=== PATIENT | female | born 1960 | race Caucasian/White ===

== ENCOUNTER → 2017-04-19 | Outpatient (CLI) | payer BC ==
--- NOTE | 2017-04-20 14:41 | MAMMOGRAPHY REPORT ---
BILATERAL DIGITAL SCREENING MAMMOGRAM TOMOSYNTHESIS WITH CAD: 04/19/2017 CLINICAL HISTORY: Routine screening. Patient has no complaints. TECHNIQUE: Breast tomosynthesis in addition to standard 2D mammography was performed. Current study was also evaluated with a Computer Aided Detection (CAD) system. COMPARISON: Comparison is made to exams dated: 04/13/2016 mammogram, 04/01/2015 mammogram, 03/19/2014 ma mmogram, 01/02/2013 mammogram, 12/02/2011 mammogram, and 12/01/2010 mammogram - [facility] nter. BREAST COMPOSITION: There are scattered areas of fibroglandular density in both breasts. FINDINGS: There are benign-appearing calcifications in the lateral right breast. No suspicious mass, architectural distortion or cluster of suspicious microcalcifications is seen. IMPRESSION: ACR BI-RADS CATEGORY 1: NEGATIVE There is no mammographic evidence of malignancy. A 1 year screening mammogram is recommended. The pa tient will receive written notification of the results. Approximately 10% of breast cancers are not detected with mammography. A negative mammographic report should not delay biopsy if a clinically suggestive mass is present. Elizabeth Pederson M.D. ay/:04/19/2017 17:13:43 Metal Cut Off Saw Operator: Sharona GONSALEZ(Catracho)(Maria Del Rosario), [facility] letter sent: Normal 1/2 BI-RADS Code: ACR BI-RADS Category 1: Negative
== END | disposition home or self-care (01) ==
LOC: C.MAMM 16:52
PROVIDERS: ATTEND Obstetrics & Gynecology
DX: Z12.31 Encounter for screening mammogram for malignant neoplasm of breast (principal)

== ENCOUNTER 2017-10-16 15:44 | Emergency (ER) | payer BC ==
[~2017-10-16] VITALS: Ht 162.6 cm; Wt 93.4 kg
[2017-10-16 16:03] VITALS: Ht 162.6 cm; Wt 93.4 kg
--- NOTE | 2017-10-16 16:15 | EMERGENCY ROOM VISIT NOTE ---
History Report prepared by Jose: Josue Barreto Under the Supervision of: Dr. Tyler Nelson M.D. First contact with patient: 15:52 Chief Complaint: FLU LIKE SX Stated Complaint: FLU LIKE SX, NAUSEA, VOMITING, LETARGIC History of Present Illness The patient is a 57 year old female who presents to the Emergency Room with complaints of nausea that began very early this morning. The patient and her family ate the same dinner recently and all experienced episodes of vomiting and diarrhea. The patient woke up very early this morning experiencing her nausea with emesis and diarrhea episodes. These continued all morning until a couple of hours ago when she called the ambulance. She then began to be very difficult to talk to as she does not easily respond. She denies any abdominal pain. She notes that while she was vomiting, she believes to have lost consciousness and does not know if she hit her head. Source of History: patient, family Onset: early this morning Position: other (GI) Symptom Intensity: moderate Quality: other (Nausea) Timing: constant Associated Symptoms: + vomiting, + diarrhea, No abdominal pain Review of Systems See HPI for pertinent positives and negatives. A total of ten systems were reviewed and were otherwise negative. Past Medical & Surgical Medical Problems: (1) No Known Active Medical Problems Gastric Sleeve placed in 2014 Family History Patient reports no known family medical history. Social History Smoking Status: Former Smoker Smokeless Tobacco Use: No Drug Use: none Marital Status: Housing Status: lives with family Current/Historical Medications Scheduled Cholecalciferol (Vitamin D3), 1,000 UNITS PO DAILY Cyanocobalamin (Vitamin B-12), Unknown Dose PO DAILY Famotidine (Pepcid), 20 MG PO BID Multiple Vitamin (Multivitamin), 1 TAB PO DAILY Ondasetron Odt (Zofran Odt), 4 MG SL Q6H Triamterene/Hctz (Maxzide 75MG/50MG), 1 TAB PO QAM Triamterene/Hctz (Maxzide 75MG/50MG), 0.5 TAB PO QPM Allergies Coded Allergies: Penicillins (Verified Allergy, Unknown, 12/11/09) Physical Exam Vital Signs Date Time Temp Pulse Resp B/P (MAP) Pulse Ox O2 Delivery O2 Flow Rate FiO2 10/16/17 21:13 80 20 132/72 98 10/16/17 20:30 80 10/16/17 19:41 83 20 121/59 98 Room Air 10/16/17 17:09 36.7 82 20 120/79 99 Room Air 10/16/17 16:14 82 10/16/17 16:03 36.5 82 20 146/80 100 Room Air Physical Exam GENERAL: Eyes are closed but responds to painful stimuli, well-appearing, in mild distress HENT: Normocephalic, atraumatic. Oropharynx reveals dry cracked mucous membranes. EYES: Normal conjunctiva. Sclera non-icteric. NECK: Supple. No nuchal rigidity. FROM. No JVD. RESPIRATORY: Clear to auscultation. CARDIAC: Regular rate, normal rhythm. Extremities warm and well perfused. Pulses equal. ABDOMEN: Soft, non-distended. No tenderness to palpation. No rebound or guarding. No masses. RECTAL: Deferred. MUSCULOSKELETAL: Chest examination reveals no tenderness. The back is symmetrical on inspection without obvious abnormality. There is no CVA tenderness to palpation. No joint edema. LOWER EXTREMITIES: Calves are equal size bilaterally and non-tender. No edema. No discoloration. NEURO: Normal sensorium. No sensory or motor deficits noted. SKIN: Warm and dry. No rash or jaundice noted. Medical Decision & Procedures ER Provider Diagnostic Interpretation: Radiology results as stated below per my review and radiologist interpretation: SINGLE VIEW CHEST CLINICAL HISTORY: Fever. Sepsis. FINDINGS: An AP, portable, upright chest radiograph is compared to study dated 11/20/2012. Correlation is made with chest CT dated 01/30/2009. The heart is top normal for projection. The pulmonary vasculature is noncongested. There are low lung volumes with mild bibasilar atelectasis. No airspace consolidation, large pleural effusion, or pneumothorax is seen. The bony thorax is grossly intact. IMPRESSION: Low lung volumes with no acute cardiopulmonary abnormality. Electronically signed by: Travon Montes M.D. 10/16/2017 4:21 PM Dictated Date/Time: 10/16/2017 4:[address] SCAN OF THE BRAIN WITHOUT IV CONTRAST CLINICAL HISTORY: Change in mental status. COMPARISON STUDY: CT of the brain dated 01/30/2009. TECHNIQUE: Unenhanced axial CT scan of the brain is performed from the vertex to the skull base. CT DOSE: 1957.41 mGy.cm FINDINGS: Brain parenchyma: There are age-related involutional changes noting mild subcortical and periventricular microangiopathic change. There is no hemorrhage, mass effect, or evidence of acute territorial ischemia by CT criteria. Guerra-white matter is preserved. No extra-axial fluid collection is seen. Ventricles, sulci, cisterns: Prominent secondary to involutional change. Intracranial vasculature: Partially visualized intracranial vessels at the skull base are grossly normal in appearance. Calvarium: Unremarkable. Sinuses and mastoids: Trace mucosal thickening is seen in the right maxillary antrum and ethmoid sinuses. The remaining visualized paranasal sinuses are clear. The mastoid air cells are well pneumatized. Orbits: The bony orbits are grossly intact. IMPRESSION: There is no hemorrhage, mass effect, or evidence of acute territorial ischemia by CT criteria. Electronically signed by: Travon Montes M.D. 10/16/2017 5:45 PM Dictated Date/Time: 10/16/2017 5:[address] SCAN OF THE ABDOMEN AND PELVIS WITH IV CONTRAST CLINICAL HISTORY: Generalized abdominal pain. Nausea and vomiting. Diarrhea. COMPARISON STUDY: Abdominal CT dated 01/30/2009. TECHNIQUE: Following the IV administration of 93 cc of Optiray 320, CT scan of the abdomen and pelvis is performed from the lung bases to the proximal femora. Images are reviewed in the axial, sagittal, and coronal planes. IV contrast was administered without complication. A dose lowering technique was utilized adhering to the principles of ALARA. FINDINGS: Lung bases: The heart is normal in size and without pericardial effusion. The lung bases are clear noting dependent atelectasis. Liver: The contrast-enhanced liver is enlarged, measuring 21.6 cm in length. The liver is normal in contour and attenuation. There is minimal central intrahepatic biliary ductal dilatation. The hepatic veins and portal veins are patent. Gallbladder: Surgically absent noting clips in the gallbladder fossa. Spleen: The spleen is mildly enlarged, measuring 13.2 cm in length. Pancreas: Unremarkable. Adrenal glands: Unremarkable. Kidneys: The contrast enhanced kidneys demonstrate mild cortical atrophy and are without hydronephrosis. The kidneys enhance symmetrically. Abdominal vasculature: The abdominal aorta is normal in course and caliber noting mild atherosclerotic calcification. Stomach and bowel: There is a small hiatal hernia. Postoperative change is noted in the stomach. The duodenum is normal in configuration. No bowel obstruction is seen. There is mild colonic diverticulosis without CT evidence of acute diverticulitis. The appendix is well-visualized and normal. Peritoneum: There is no intraperitoneal free air or abdominal ascites. There is a complex fat-containing ventral hernia in the pelvic midline. Lymphadenopathy: None. Pelvic viscera: The bladder is normal as visualized. The uterus is atrophic versus surgically absent. No adnexal lesion is seen. Skeletal structures: The skeletal structures are osteopenic. No lytic or blastic lesions are seen. IMPRESSION: 1. There are no acute infectious or inflammatory findings in the abdomen or pelvis. 2. Mild hepatosplenomegaly. 3. Mild colonic diverticulosis without CT evidence of acute diverticulitis. 4. Additional findings as above. Electronically signed by: Travon Montes M.D. 10/16/2017 5:51 PM Dictated Date/Time: 10/16/2017 5:45 PM Laboratory Results 10/16/17 16:31 Red Blood Count 5.29, Mean Corpuscular Volume 87.9, Mean Corpuscular Hemoglobin 30.4, Mean Corpuscular Hemoglobin Concent 34.6, Mean Platelet Volume 10.3, Neutrophils (%) (Auto) 94.0, Lymphocytes (%) (Auto) 2.6, Monocytes (%) (Auto) 3.0, Eosinophils (%) (Auto) 0.1, Basophils (%) (Auto) 0.1, Neutrophils # (Auto) 9.40, Lymphocytes # (Auto) 0.26, Monocytes # (Auto) 0.30, Eosinophils # (Auto) 0.01, Basophils # (Auto) 0.01 10/16/17 16:31 Test 10/16/17 16:25 10/16/17 16:31 10/16/17 17:05 10/16/17 20:30 Influenza Type A Antigen Neg for Influ A (NEG) Influenza Type B Antigen Neg for Influ B (NEG) White Blood Count 10.00 K/uL (4.8-10.8) Red Blood Count 5.29 M/uL (4.2-5.4) Hemoglobin 16.1 g/dL (12.0-16.0) Hematocrit 46.5 % (37-47) Mean Corpuscular Volume 87.9 fL (80-100) Mean Corpuscular Hemoglobin 30.4 pg (25-34) Mean Corpuscular Hemoglobin Concent 34.6 g/dl (32-36) Platelet Count 167 K/uL (130-400) Mean Platelet Volume 10.3 fL (7.4-10.4) Neutrophils (%) (Auto) 94.0 % Lymphocytes (%) (Auto) 2.6 % Monocytes (%) (Auto) 3.0 % Eosinophils (%) (Auto) 0.1 % Basophils (%) (Auto) 0.1 % Neutrophils # (Auto) 9.40 K/uL (1.4-6.5) Lymphocytes # (Auto) 0.26 K/uL (1.2-3.4) Monocytes # (Auto) 0.30 K/uL (0.11-0.59) Eosinophils # (Auto) 0.01 K/uL (0-0.5) Basophils # (Auto) 0.01 K/uL (0-0.2) RDW Standard Deviation 40.4 fL (36.4-46.3) RDW Coefficient of Variation 12.6 % (11.5-14.5) Immature Granulocyte % (Auto) 0.2 % Immature Granulocyte # (Auto) 0.02 K/uL (0.00-0.02) Venous Blood pH 7.43 (7.36-7.41) Venous Blood Partial Pressure CO2 43 mmHg (38.0-50.0) Venous Blood Partial Pressure O2 19 mmHg Venous Blood HCO3 28 mmol/L Venous Blood Oxygen Saturation < 60.0 % Venous Blood Base Excess 2.8 mEq/L Anion Gap 9.0 mmol/L (3-11) Est Creatinine Clear Calc Drug Dose 84.9 ml/min Estimated GFR () 92.7 Estimated GFR (Non- 80.0 BUN/Creatinine Ratio 22.8 (10-20) Lactic Acid Level 2.2 mmol/L (0.4-2.0) Calcium Level 8.6 mg/dl (8.5-10.1) Phosphorus Level 1.8 mg/dl (2.5-4.9) Magnesium Level 1.7 mg/dl (1.8-2.4) Total Bilirubin 1.0 mg/dl (0.2-1) Direct Bilirubin 0.2 mg/dl (0-0.2) Aspartate Amino Transf (AST/SGOT) 33 U/L (15-37) Alanine Aminotransferase (ALT/SGPT) 37 U/L (12-78) Alkaline Phosphatase 83 U/L (45-117) Troponin I < 0.015 ng/ml (0-0.045) Total Protein 7.5 gm/dl (6.4-8.2) Albumin 4.1 gm/dl (3.4-5.0) Lipase 175 U/L (73-393) Urine Color YELLOW Urine Appearance CLEAR (CLEAR) Urine pH 6.0 (4.5-7.5) Urine Specific [place] 1.019 (1.000-1.030) Urine Protein NEG (NEG) Urine Glucose (UA) NEG (NEG) Urine Ketones 2+ (NEG) Urine Occult Blood NEG (NEG) Urine Nitrite NEG (NEG) Urine Bilirubin NEG (NEG) Urine Urobilinogen NEG (NEG) Urine Leukocyte Esterase NEG (NEG) Bedside Lactic Acid Venous 0.80 mmol/L (0.90-1.70) Laboratory results reviewed by me Medications Administered Medications (Trade) Dose Ordered Sig/Tova Route Start Time Stop Time Status Last Admin Dose Admin Sodium Chloride 2,000 ml @ 999 mls/hr Q2H1M STAT IV 10/16/17 17:57 10/16/17 19:57 DC 10/16/17 17:57 999 MLS/HR Potassium Chloride (Klor-Con M10) 40 meq NOW STAT PO 10/16/17 17:57 10/16/17 18:08 DC 10/16/17 18:46 40 MEQ Potassium Chloride 10 meq/ Prmx 100 ml @ 100 mls/hr NOW ONCE IV 10/16/17 18:30 10/16/17 19:29 DC 10/16/17 18:46 100 MLS/HR Ondansetron HCl (Zofran Inj) 4 mg NOW STAT IV 10/16/17 18:33 10/16/17 18:34 DC 10/16/17 18:46 4 MG Famotidine (Pepcid 20mg Iv Push) 20 mg NOW STAT IV 10/16/17 20:06 10/16/17 20:07 DC 10/16/17 20:16 20 MG Ondansetron HCl (Zofran Inj) 4 mg NOW STAT IV 10/16/17 20:06 10/16/17 20:07 DC 10/16/17 20:16 4 MG Ondansetron HCl (ZOFRAN ODT 4MG Home Pack) 1 homepack UD ONCE PO 10/16/17 21:00 10/16/17 21:01 DC 10/16/17 21:03 1 HOMEPACK ECG Indication: nausea, vomiting Rate (beats per minute): 82 Rhythm: sinus rhythm Findings: 1st degree AV block, no acute ischemic change, left axis deviation ED Course 1552: The patient was evaluated in room B8. A complete history and physical exam was performed. Medical Decision I reviewed the patient's past medical history, medications, and the nursing notes as described above. Differential diagnosis includes but is not limited to: gastritis, gastroenteritis, colitis, appendicitis, diverticulitis, and partial obstruction. The patient is a 57-year-old woman with a past medical history of a gastric sleeve presents to the emergency department after developing acute onset nausea vomiting and diarrhea today in the setting of having family members with similar symptoms yesterday per history of present illness. On arrival the patient is in mild distress, afebrile with stable vital signs. Abdomen is soft nontender. Lactate mildly elevated 2.2 and potassium is 2.9.. Labs otherwise unremarkable including WBC within normal limits. CXR negative. CT abdomen and pelvis unremarkable. Patient feeling much improved after IV fluids. Reassuring workup will repeat lactate after further hydration and if clears plan for follow-up. Magnesium and phosphorus slightly low. Plan for MVI and recheck with pcp. Findings and plan for follow-up reviewed with patient. Patient agreeable and d/c'd per discharge instructions. Medication Reconcilliation Current Medication List: was personally reviewed by me Blood Pressure Screening Patient's blood pressure: Normal blood pressure Blood pressure disposition: Did not require urgent referral Impression Primary Impression: Gastroenteritis Additional Impression: Hypokalemia Scribe Attestation The scribe's documentation has been prepared under my direction and personally reviewed by me in its entirety. I confirm that the note above accurately reflects all work, treatment, procedures, and medical decision making performed by me. Departure Information Prescriptions Famotidine (PEPCID) 20 Mg Tab 20 MG PO BID for 7 Days, #14 TAB Prov: Tyler Nelson M.D. 10/16/17 Ondasetron Odt (ZOFRAN ODT) 4 Mg Tab 4 MG SL Q6H for Nausea, #6 TAB Prov: Tyler Nelson M.D. 10/16/17 Referrals Juvencio Cazares M.D. (PCP) Patient Instructions ED Diet Brat Expanded Ch, ED Food Poison Or Gastroenteritis, Hypokalemia Dc, Hypomagnesemia Dc, Hypophosphatemia Dc, My [facility] Additional Instructions Please follow up with your primary care physician in the next 1-3 days for re- evaluation and to recheck your potassium, magnesium, and phosphorus. You likely have a viral gastroenteritis. Otherwise, your exam, chest xray, CT scan of your abdomen and pelvis, and lab results did not show signs of an emergent condition at this time. Your potassium, magnesium, and phosphorus where low. Continue your daily multi- vitamin. Zofran as needed for nausea. Pepcid for acid reduction. Drink plenty of fluids to ensure hydration. BRAT diet. Return to the emergency department for worsening symptoms as described in the accompanying instructions. Problem Qualifiers
--- NOTE | 2017-10-16 16:22 | DIAGNOSTIC IMAGING REPORT ---
SINGLE VIEW CHEST CLINICAL HISTORY: Fever. Sepsis. FINDINGS: An AP, portable, upright chest radiograph is compared to study dated 11/20/2012. Correlation is made with chest CT dated 01/30/2009. The heart is top normal for projection. The pulmonary vasculature is noncongested. There are low lung volumes with mild bibasilar atelectasis. No airspace consolidation, large pleural effusion, or pneumothorax is seen. The bony thorax is grossly intact. IMPRESSION: Low lung volumes with no acute cardiopulmonary abnormality. Electronically signed by: Travon Montes M.D. 10/16/2017 4:21 PM Dictated Date/Time: 10/16/2017 4:20 PM
[2017-10-16 16:49] LABS: BASO % 0.1 %; BASO ABS # 0.01 K/uL (0-0.2); COMPLETE YES; EOS % 0.1 %; HEMATOCRIT 46.5 % (37-47); IG% 0.2 %; LYMPH % 2.6 %; LYMPH ABS # 0.26 K/uL (1.2-3.4); MEAN CELL VOLUME 87.9 fL (80-100); MEAN CORPUSCULAR HEMOGLOBIN 30.4 pg (25-34); MEAN CORPUSCULAR HGB CONC 34.6 g/dl (32-36); MEAN PLATELET VOLUME 10.3 fL (7.4-10.4); PLATELET COUNT 167 K/uL (130-400); RED BLOOD COUNT 5.29 M/uL (4.2-5.4); VEN BLD GAS O2 SATURATION < 60.0 %; VEN BLOOD GAS BASE EXCESS 2.8 mEq/L; VENOUS BLOOD GAS PCO2 43 mmHg (38.0-50.0); VENOUS BLOOD GAS PO2 19 mmHg
[2017-10-16] MEDS ORDERED: TRIA75TA53 PO ×2 (16:51→16:54)
[2017-10-16] MEDS ORDERED: CHOL1000 PO (16:56)
[2017-10-16] MEDS ORDERED: MULTTAB58 PO (16:58)
[2017-10-16] MEDS ORDERED: CYAN100048 PO (16:58)
[2017-10-16 17:03] LABS: ALT/SGPT 37 U/L (12-78); AST/SGOT 33 U/L (15-37); BLOOD UREA NITROGEN 19 mg/dl (7-18); BUN/CREATININE RATIO 22.8 (10-20); CALCIUM 8.6 mg/dl (8.5-10.1); CARBON DIOXIDE 26 mmol/L (21-32); CHLORIDE 102 mmol/L (98-107); CREATININE 0.82 mg/dl (0.60-1.20); GLUCOSE 167 mg/dl (70-99); POTASSIUM 2.9 mmol/L (3.5-5.1); SODIUM 137 mmol/L (136-145)
[2017-10-16 17:08] LABS: ALKALINE PHOSPHATASE 83 U/L (45-117)
[2017-10-16 17:09] VITALS: TEMP 36.7
[2017-10-16 17:18] LABS: URINE APPEARANCE CLEAR (CLEAR); URINE BILIRUBIN NEG (NEG); URINE COLOR YELLOW; URINE NITRITE NEG (NEG); URINE SPECIFIC GRAVITY 1.019 (1.000-1.030); UROBILINOGEN NEG (NEG)
[2017-10-16 17:20] LABS: MANUAL MICROSCOPIC REQUIRED? NO; REVIEW REQ? NO
[2017-10-16] MEDS ORDERED: OPTIRAY 320 IV PRN (17:45)
--- NOTE | 2017-10-16 17:46 | DIAGNOSTIC IMAGING REPORT ---
CT SCAN OF THE BRAIN WITHOUT IV CONTRAST CLINICAL HISTORY: Change in mental status. COMPARISON STUDY: CT of the brain dated 01/30/2009. TECHNIQUE: Unenhanced axial CT scan of the brain is performed from the vertex to the skull base. CT DOSE: 1957.41 mGy.cm FINDINGS: Brain parenchyma: There are age-related involutional changes noting mild subcortical and periventricular microangiopathic change. There is no hemorrhage, mass effect, or evidence of acute territorial ischemia by CT criteria. Guerra-white matter is preserved. No extra-axial fluid collection is seen. Ventricles, sulci, cisterns: Prominent secondary to involutional change. Intracranial vasculature: Partially visualized intracranial vessels at the skull base are grossly normal in appearance. Calvarium: Unremarkable. Sinuses and mastoids: Trace mucosal thickening is seen in the right maxillary antrum and ethmoid sinuses. The remaining visualized paranasal sinuses are clear. The mastoid air cells are well pneumatized. Orbits: The bony orbits are grossly intact. IMPRESSION: There is no hemorrhage, mass effect, or evidence of acute territorial ischemia by CT criteria. Electronically signed by: Travon Montes M.D. 10/16/2017 5:45 PM Dictated Date/Time: 10/16/2017 5:43 PM
--- NOTE | 2017-10-16 17:52 | DIAGNOSTIC IMAGING REPORT ---
CT SCAN OF THE ABDOMEN AND PELVIS WITH IV CONTRAST CLINICAL HISTORY: Generalized abdominal pain. Nausea and vomiting. Diarrhea. COMPARISON STUDY: Abdominal CT dated 01/30/2009. TECHNIQUE: Following the IV administration of 93 cc of Optiray 320, CT scan of the abdomen and pelvis is performed from the lung bases to the proximal femora. Images are reviewed in the axial, sagittal, and coronal planes. IV contrast was administered without complication. A dose lowering technique was utilized adhering to the principles of ALARA. FINDINGS: Lung bases: The heart is normal in size and without pericardial effusion. The lung bases are clear noting dependent atelectasis. Liver: The contrast-enhanced liver is enlarged, measuring 21.6 cm in length. The liver is normal in contour and attenuation. There is minimal central intrahepatic biliary ductal dilatation. The hepatic veins and portal veins are patent. Gallbladder: Surgically absent noting clips in the gallbladder fossa. Spleen: The spleen is mildly enlarged, measuring 13.2 cm in length. Pancreas: Unremarkable. Adrenal glands: Unremarkable. Kidneys: The contrast enhanced kidneys demonstrate mild cortical atrophy and are without hydronephrosis. The kidneys enhance symmetrically. Abdominal vasculature: The abdominal aorta is normal in course and caliber noting mild atherosclerotic calcification. Stomach and bowel: There is a small hiatal hernia. Postoperative change is noted in the stomach. The duodenum is normal in configuration. No bowel obstruction is seen. There is mild colonic diverticulosis without CT evidence of acute diverticulitis. The appendix is well-visualized and normal. Peritoneum: There is no intraperitoneal free air or abdominal ascites. There is a complex fat-containing ventral hernia in the pelvic midline. Lymphadenopathy: None. Pelvic viscera: The bladder is normal as visualized. The uterus is atrophic versus surgically absent. No adnexal lesion is seen. Skeletal structures: The skeletal structures are osteopenic. No lytic or blastic lesions are seen. IMPRESSION: 1. There are no acute infectious or inflammatory findings in the abdomen or pelvis. 2. Mild hepatosplenomegaly. 3. Mild colonic diverticulosis without CT evidence of acute diverticulitis. 4. Additional findings as above. Electronically signed by: Travon Montes M.D. 10/16/2017 5:51 PM Dictated Date/Time: 10/16/2017 5:45 PM
[2017-10-16] MEDS ORDERED: SODIUM CHLORIDE 0.9% 1000ML 2,000 ML IV STA (17:57)
[2017-10-16] MEDS ORDERED: POTASSIUM CHLORIDE 10 MEQ / 100ML WTR IV STA (17:57)
[2017-10-16] MEDS ORDERED: POTASSIUM CHLORIDE 10 MEQ TABCR PO STA (17:57)
[2017-10-16] MEDS ORDERED: POTASSIUM CHLR 10MEQ / WTR IV ONE (18:30)
[2017-10-16] MEDS ORDERED: ONDANSETRON INJ 2 MG/ML 2 ML VIAL IV STA ×2 (18:33→20:06)
[2017-10-16 18:54] LABS: MAGNESIUM 1.7 mg/dl (1.8-2.4); PHOSPHORUS 1.8 mg/dl (2.5-4.9)
[2017-10-16] MEDS ORDERED: ONDA4TAB10 SL (19:03)
[2017-10-16] MEDS ORDERED: FAMOTIDINE 20MG/5ML IV PUSH IV STA (20:06)
[2017-10-16] MEDS ORDERED: FAMO20TA9 PO (20:07)
[2017-10-16] MEDS ORDERED: ONDANSETRON HOME PACK 4MG OD TAB ONE (20:50)
[2017-10-16] MEDS ORDERED: ONDANSETRON HOME PACK 4MG OD TAB PO ONE (21:00)
[2017-10-16 21:13] VITALS: BP 132/72; PULSE 80; O2SAT 98
== END 2017-10-16 21:14 | disposition home or self-care (01) ==
LOC: EDBD 15:44 → C.EDB 15:45
DX: K52.9 Noninfective gastroenteritis and colitis, unspecified (principal); E87.6 Hypokalemia; I44.0 Atrioventricular block, first degree; Z98.890 Other specified postprocedural states; Z87.891 Personal history of nicotine dependence; Z79.899 Other long term (current) drug therapy; Z88.0 Allergy status to penicillin